=== PATIENT | male | born 1975 | race African-American/Black ===

== ENCOUNTER 2017-12-22 17:49 | Emergency (ER) | payer OTHER ==
[2017-12-22 18:02] VITALS: RESP 18
--- NOTE | 2017-12-22 18:47 | ED ---
General Adult HPI - General Source: patient, RN notes reviewed Mode of arrival: ambulatory Limitations: no limitations <Zack De - Last Filed: 12/22/17 19:28> <Bonilla Allen - Last Filed: 12/22/17 20:11> <Bonilla Chavez - Last Filed: 12/22/17 22:59> - General Chief complaint: Psychiatric Symptoms Stated complaint: suicidal Time Seen by Provider: 12/22/17 18:05 - History of Present Illness Initial comments: Patient's a 2-year-old male presenting to the emergency room today in psychiatric evaluation. Patient does admit that he was sober for 7 years began drinking 3 days ago. States it has been a lot going on at home. Patient states that he works at the [employer]. Coworkers came to his house because they were concerned about him and brought him here to the hospital for evaluation. Patient states he has no intentions of committing suicide but doesn't that he's been drinking. Patient denies any homicidal thoughts or plans. He denies any physical complaint. His last drink was 10 AM. Patient denies any recent fever, chills, shortness of breath, chest pain, back pain, abdominal pain, nausea or vomiting, numbness or tingling, dysuria or hematuria, constipation or diarrhea, headaches or visual changes, or any other complaints. 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 <Zack De - Last Filed: 12/22/17 19:28> ROS Other: All systems not noted in ROS Statement are negative. <Bonilla Allen - Last Filed: 12/22/17 20:11> ROS Other: All systems not noted in ROS Statement are negative. <Bonilla Chavez - Last Filed: 12/22/17 22:59> ROS Statement: Those systems with pertinent positive or pertinent negative responses have been documented in the HPI. Past Medical History Past Medical History: Asthma Additional Past Medical History / Comment(s): seasonal allergies History of Any Multi-Drug Resistant Organisms: None Reported Past Surgical History: No Surgical Hx Reported Past Psychological History: Anxiety, Depression Smoking Status: Current every day smoker Past Alcohol Use History: Abuse Past Drug Use History: Cocaine, Marijuana <Zack De - Last Filed: 12/22/17 19:28> General Exam Limitations: no limitations <Zack De - Last Filed: 12/22/17 19:28> <Bonilla Allen - Last Filed: 12/22/17 20:11> <Bonilla Chavez - Last Filed: 12/22/17 22:59> - General Exam Comments Initial Comments: General: The patient is awake and alert, in no distress, and does not appear acutely ill. Eye: Pupils are equal, round and reactive to light, extra-ocular movements are intact. No nystagmus. There is normal conjunctiva bilaterally. No signs of icterus. Ears, nose, mouth and throat: There are moist mucous membranes and no oral lesions. Neck: The neck is supple, there is no tenderness or JVD. Cardiovascular: There is a regular rate and rhythm. No murmur, rub or gallop is appreciated. Respiratory: Lungs are clear to auscultation, respirations are non-labored, breath sounds are equal. No wheezes, stridor, rales, or rhonchi. Gastrointestinal: Soft, non-distended, non-tender abdomen without masses or organomegaly noted. There is no rebound or guarding present. No CVA tenderness. Musculoskeletal: Normal ROM, no tenderness. Strength 5/5. Sensation intact. Pulses equal bilaterally 2+. Neurological: A&O x 3. CN II-XII intact, There are no obvious motor or sensory deficits. Coordination appears grossly intact. Speech is normal. Skin: Skin is warm and dry and no rashes or lesions are noted. Psychiatric: Cooperative (Zack De) Course <Zack De - Last Filed: 12/22/17 19:28> <Bonilla Allen - Last Filed: 12/22/17 20:11> <Bonilla Chavez - Last Filed: 12/22/17 22:59> Vital Signs 12/22/17 17:58 Temperature 98.0 F Pulse Rate 101 H Respiratory 18 Rate Blood Pressure 129/82 O2 Sat by Pulse 96 Oximetry - Reevaluation(s) Reevaluation #1: 12/22/17 19:28 Patient currently awaiting sobriety for mental health evaluation. Case discussed and signed out to attending physician Dr. Allen. (Zack De) 12/22/17 2100 Patient's care signed out to Dr. Chavez at shift change, awaiting sobriety and EPS evaluation. (Bonilla Allen) Medical Decision Making <Zack De - Last Filed: 12/22/17 19:28> <Bonilla Allen - Last Filed: 12/22/17 20:11> <Bonilla Chavez - Last Filed: 12/22/17 22:59> - Medical Decision Making Patient was evaluated by psychiatric service and currently is not a risk for Zofran as well as. Patient will be discharged with outpatient follow-up. (Bonilla Chavez) - Lab Data Lab Results 12/22/17 Range/Units 18:48 Urine Opiates Screen Not Detected (NotDetected) Ur Oxycodone Screen Not Detected (NotDetected) Urine Methadone Screen Not Detected (NotDetected) Ur Propoxyphene Screen Not Detected (NotDetected) Ur Barbiturates Screen Not Detected (NotDetected) U Tricyclic Antidepress Not Detected (NotDetected) Ur Phencyclidine Scrn Not Detected (NotDetected) Ur Amphetamines Screen Not Detected (NotDetected) U Methamphetamines Scrn Not Detected (NotDetected) U Benzodiazepines Scrn Detected H (NotDetected) Urine Cocaine Screen Detected H (NotDetected) U Marijuana (THC) Screen Not Detected (NotDetected) Disposition <Zack De - Last Filed: 12/22/17 19:28> <Bonilla Allen - Last Filed: 12/22/17 20:11> Is patient prescribed a controlled substance at d/c from ED?: No <Bonilla Chavez - Last Filed: 12/22/17 22:59> Clinical Impression: Adjustment reaction, Alcohol intoxication Disposition: HOME SELF-CARE Condition: Good Instructions: Alcohol Intoxication (ED), Anxiety (ED) Referrals: None,Stated [Primary Care Provider] - 1-2 days
[2017-12-22 19:12] LABS: Amphetamine Screen,Urine Not Detected (NotDetected); Barbiturate Screen,Urine Not Detected (NotDetected); Benzodiazepines Screen,Urine Detected (NotDetected); Cocaine Screen,Urine Detected (NotDetected); Methadone Screen, Urine Not Detected (NotDetected); Opiate Screen,Urine Not Detected (NotDetected); Oxycodone Screen, Urine Not Detected (NotDetected); Phencyclidine Screen,Urine Not Detected (NotDetected); Tricyclic Antidepressant,Urine Not Detected (NotDetected); Urn Cannabinoid Scrn Not Detected (NotDetected)
[2017-12-22 23:11] VITALS: BP 121/74; PULSE 84; TEMP 97.5
== END 2017-12-22 23:11 | disposition home or self-care (01) ==
LOC: EC 17:49
DX: F43.20 Adjustment disorder, unspecified (principal); F10.129 Alcohol abuse with intoxication, unspecified; F17.200 Nicotine dependence, unspecified, uncomplicated; Z91.013 Allergy to seafood; Z91.018 Allergy to other foods
CPT/HCPCS: 80306; 82075; 99284